=== PATIENT | male | born 2000 | race African-American/Black ===

== ENCOUNTER 2019-03-09 09:14 | Emergency (ER) | payer OTHER, SELFPAY ==
--- NOTE | ~2019-03-09 | XR_ITS ---
EXAMINATION: XR elbow RT min 3V DATE: 03/09/2019 09:49 INDICATION: Right elbow pain. TECHNIQUE: 4 views of right elbow were obtained. COMPARISON: None. FINDINGS: Bone alignment is normal. No fracture. Joint spaces are well maintained. There is no elbow joint effusion. IMPRESSION: 1. Normal right elbow. Reviewed, dictated and finalized at location A. [employer] DES[employer]ER IMPRESSION: 1. Normal right elbow.
--- NOTE | 2019-03-09 09:28 | ED.GENADULT ---
HPI - General Adult General Chief complaint: Extremity Injury, Upper Stated complaint: Right arm pain Time Seen by Provider: 03/09/19 09:37 Source: patient and RN notes reviewed Mode of arrival: ambulatory Limitations: no limitations History of Present Illness HPI narrative: This patient had been running a relay on 03/07/2019, , of this past week. He put his arm outstretched so that his elbow was locked and ran into the wall with the palm of his hand jamming the arm backwards. He has pain at the right elbow. The patient has pain over the posterior aspect the right elbow. He does not have any pain at the mid or proximal forearm, or at the wrist, or through the metacarpals, or fingers, or thumb of the hand. He does not hurt at the mid humerus or at the shoulder. He has no pain with range of motion at the shoulder. He appears mildly uncomfortable whenever he flexes and extends the right elbow. He has no pain with supination or pronation of the right hand. He has not taken any medications OTC for this discomfort. He has no numbness or tingling sensation in the arm. He has not had any previous fractures of his right arm. He is right-handed. He has no other symptoms. He has not had any left arm or lower extremity pain. He has had no neck pain, thoracic pain, or lumbar pain. He otherwise has been feeling well without any ear pain, no nasal drainage, no sore throat, no fever, and no cough. He has had no nausea, no vomiting, and no diarrhea. He has had no hematuria, no dysuria, and no pyuria. He has had no rashes. Related Data Allergies Allergy/AdvReac Type Severity Reaction Status Date / Time No Known Allergies Allergy Verified 03/09/19 09:44 Review of Systems Review of Systems: Narrative: CONSTITUTIONAL: Denies fever, chills, or sweats. Noncontributory except as pertains to the past medical history and the history of the present illness. EYES: Denies visual changes, redness, or discharge. ENT: Denies rhinorrhea, congestion, sore throat, or otalgia. CARDIOVASCULAR: Denies chest pain, palpitations, or edema. RESPIRATORY: Denies cough or dyspnea. GASTROINTESTINAL: Denies abdominal pain, nausea, vomiting, or diarrhea. GENITOURINARY: Denies dysuria or hematuria. SKIN: Denies rash or itching. MUSCULOSKELETAL: Denies back pain, joint pain, or myalgia. NEUROLOGIC: Denies headache, numbness, or weakness. PSYCHIATRIC: Denies anxiety or depression. PMFSH Comments At time of signature, I have reviewed and agree with nursing past medical, surgical, social, and family history.Please see nursing chart for further information. There is no relevant family history pertinent to the presenting complaint. Exam Narrative: Exam Narrative: GENERAL: Well-appearing, well-nourished, and in no acute distress. HEAD: Normocephalic, atraumatic. EYES: PERRLA and EOMI. EARS: TM's clear bilaterally and the canals are clear. NOSE: Nares clear, no rhinorrhea or epistaxis. THROAT:Mucous membranes moist.Oropharynx normal without erythema or exudates. NECK: Supple. No adenopathy of the neck, supraclavicular, axillary, or inguinal areas. RESPIRATORY: No respiratory distress. Airway patent. Respirations non-labored. Clear to auscultation. There are no wheezes, no rales, no retractions, and no use of accessory muscle respirations. Patient's not cyanotic and not dyspneic. HEART: Regular rate and rhythm. No murmur heard. Normal peripheral pulses. ABDOMEN: Soft, nontender, nondistended, normal active bowel sounds.No masses. No rebound or guarding, No organomegaly. There is no CVA pain. No pain McBurney's point. Patient is a negative Langford sign and negative Rovsing sign. There are no pulsatile masses or audible bruits. EXTREMITIES: No clubbing/cyanosis/ edema. Normal strength & range of motion. The extremity exam is normal except for the right arm. The patient has plus 5 out of 5 handgrips bilaterally. The patient has palpation tenderness over the posterior aspect
[2019-03-09 09:32] VITALS: BP 143/88; PULSE 65; RESP 20; TEMP 37.1; O2SAT 100
== END 2019-03-09 10:09 | disposition home or self-care (01) ==
PROVIDERS: Emergency Provider Family Medicine
DX: S53.401A Unspecified sprain of right elbow, initial encounter (principal); X50.9XXA Other and unspecified overexertion or strenuous movements or postures, initial encounter
CPT/HCPCS: 73080; 99203; G0463